=== PATIENT | female | born 1945 | race Caucasian/White ===

== ENCOUNTER 2019-10-14 21:23 | Emergency (ER) | payer MEDICARE, BC ==
--- NOTE | 2019-10-14 21:59 | EDM.PDOC ---
ED HPI GENERAL MEDICAL PROBLEM - General Chief Complaint: General Stated Complaint: previous vision changes Time Seen by Provider: 10/14/19 21:23 Source of Information: Reports: Patient, Significant Other History Limitations: Reports: No Limitations - History of Present Illness INITIAL COMMENTS - FREE TEXT/NARRATIVE: Patient presents reporting an episode of vision change that occurred 36 hours ago. She says the lights all seemed very bright. It lasted 5-10 minutes and was followed by a headache. She feels well and normal now. About a month ago she was talking on the phone with her sister and started saying things that didn't make sense. She was aware of it but couldn't stop. Her sister agreed that she wasn't making sense. It lasted 3-4 minutes and was followed by a severe headache that went away with Tylenol. - Related Data Allergies Allergy/AdvReac Type Severity Reaction Status Date / Time Penicillins Allergy Hives Verified 10/14/19 21:56 Sulfa (Sulfonamide Allergy Hives Verified 10/14/19 21:56 Antibiotics) Home Meds: Home Meds . [Unable to Verify Home Med List] 02/04/14 [History] ED ROS GENERAL - Review of Systems Review Of Systems: See Below Constitutional: Denies: Fever, Weakness HEENT: Reports: Vision Change (normal now) Respiratory: Denies: Shortness of Breath, Cough Cardiovascular: Reports: Other (feels a flutter sometimes). Denies: Chest Pain, Lightheadedness, Syncope GI/Abdominal: Denies: Abdominal Pain, Vomiting : Denies: Dysuria, Flank Pain Musculoskeletal: Denies: Neck Pain, Shoulder Pain, Arm Pain, Back Pain, Hand Pain Skin: Denies: Cyanosis, Jaundice, Mottled, Pallor, Diaphoresis Neurological: Reports: Confusion (not now), Headache (not now). Denies: Seizure, Syncope, Difficulty Walking Psychiatric: Denies: Agitation ED EXAM, GENERAL - Physical Exam Exam: See Below Exam Limited By: No Limitations General Appearance: Alert, WD/WN, No Apparent Distress Eye Exam: Bilateral Eye: EOMI, Normal Inspection (full visual sosa bilat), PERRL Ears: Normal External Exam, Hearing Grossly Normal Nose: Normal Inspection, No Blood Throat/Mouth: Normal Inspection, Normal Lips, Normal Voice, No Airway Compromise Head: Atraumatic, Normocephalic Neck: Normal Inspection, Non-Tender, Full Range of Motion Respiratory/Chest: No Respiratory Distress, Lungs Clear, Normal Breath Sounds, No Accessory Muscle Use Cardiovascular: Regular Rate, Rhythm, No Murmur GI/Abdominal: No Distention Back Exam: Normal Inspection, Full Range of Motion. No: CVA Tenderness (L), CVA Tenderness (R) Extremities: Normal Inspection, Normal Range of Motion Neurological: Alert, Oriented, CN II-XII Intact, Normal Cognition, Normal Gait, No Motor/Sensory Deficits, Other (normal Romberg) Psychiatric: Normal Affect, Normal Mood Skin Exam: Warm, Dry, Intact, Normal Color, No Rash Course - Orders/Labs/Meds Orders: Active Orders 24 hr Category Date Time Status EKG Documentation Completion [RC] ASDIRECTED Care 10/14/19 21:58 Active EKG Documentation Completion [RC] ASDIRECTED Care 10/14/19 22:00 Ordered Head wo Cont [CT] Stat Exams 10/14/19 21:53 Ordered EKG 12 Lead [EK] Stat Ther 10/14/19 21:59 Ordered Labs: Laboratory Tests 10/14/19 10/14/19 Range/Units 22:40 22:40 WBC 4.46 L (5.00-10.00) 10^3/uL RBC 4.18 (3.80-5.50) 10^6/uL Hgb 13.3 (12.0-16.0) g/dL Hct 40.1 (37.0-47.0) % MCV 95.9 H (82.0-92.0) fL MCH 31.8 H (27.0-31.0) pg MCHC 33.2 (32.0-36.0) g/dL RDW 11.9 (11.5-14.5) % Plt Count 205 (150-400) 10^3/uL MPV 8.6 (7.4-10.4) fL Immature Gran % (Auto) 0.0 (0.0-5.0) % Neut % (Auto) 42.4 L (50.0-70.0) % Lymph % (Auto) 47.3 H (20.0-40.0) % Kimball % (Auto) 7.2 (2.0-8.0) % Eos % (Auto) 2.7 (1.0-3.0) % Baso % (Auto) 0.4 (0.0-1.0) % Neut # (Auto) 1.89 L (2.50-7.00) 10^3/uL Lymph # (Auto) 2.11 (1.00-4.00) 10^3/uL Kimball # (Auto) 0.32 (0.10-0.80) 10^3/uL Eos # (Auto) 0.12 (0.10-0.30) 10^3/uL Baso # (Auto) 0.02 (0.00-0.10) 10^3/uL Immature Gran # (Auto) 0.00 (0.00-0.50) 10^3/uL Sodium 135 L (136-145) mmol/L Potassium 4.6 (3.3-5.3) mmol/L Chloride 100 (98-115) mmol/L Carbon Dioxide 30.3 (21.0-32.0) mmol/L Anion Gap 9.3 (5-15) mmol/L BUN 14 (6-25) mg/dL Creatinine 0.59 (0.51-1.17) mg/dL Est Cr Clr Drug Dosing TNP Estimated GFR (MDRD) > 60 mL/min Glucose 100 H (75 - 99) mg/dL Calcium 9.6 (8.7-10.3) mg/dL Troponin I 0.05 (0.00-0.070) ng/mL - Re-Assessments/Exams Free Text/Narrative Re-Assessment/Exam: 10/14/19 22:26 EKG shows NSR with q-waves and inverted T-waves in aVR, V1, V2 which is similar to EKG from Jan 2014, except V2 was normal then. Patient is not aware of any AK in the past. 10/14/19 23:30 CBC, BMP and troponin all normal. Discussed findings and plan with patient and her . She will followup with her PCP tomorrow or early next week. Discharged to home in stable condition. Departure - Departure Time of Disposition: 23:27 Disposition: Home, Self-Care 01 Condition: Good Clinical Impression: Episode of confusion, Visual disturbance - Discharge Information Referrals: Catina Dash MD [Primary Care Provider] - Forms: ED Department Discharge Additional Instructions: Take an aspirin a day until you see your PCP. Call your PCP tomorrow morning to schedule a visit for ER followup [facility], at least by early next week. - My Orders Last 24 Hours: My Active Orders 10/14/19 21:53 Head wo Cont [CT] Stat 10/14/19 21:58 EKG Documentation Completion [RC] ASDIRECTED 10/14/19 21:59 EKG 12 Lead [EK] Stat 10/14/19 22:00 EKG Documentation Completion [RC] ASDIRECTED - Assessment/Plan Last 24 Hours: My Active Orders 10/14/19 21:53 Head wo Cont [CT] Stat 10/14/19 21:58 EKG Documentation Completion [RC] ASDIRECTED 10/14/19 21:59 EKG 12 Lead [EK] Stat 10/14/19 22:00 EKG Documentation Completion [RC] ASDIRECTED
[2019-10-14 23:18] LABS: ANION GAP 9.3 mmol/L (5-15); CHLORIDE,CL 100 mmol/L (98-115); SODIUM,NA 135 mmol/L (136-145)
--- NOTE | 2019-10-15 08:42 | CT ---
[id number] CT/CT Head WO IV EXAM: CT Head WO IV CLINICAL DATA: NEUROLOGIC DEFICIT COMPARISON: NO PREVIOUS SIMILAR EXAM IS AVAILABLE FOR COMPARISON. FINDINGS: There is no mass or mass effect. There is no hemorrhage or hydrocephalus. There are no extra-axial fluid collections. There are no sites of abnormal attenuation. IMPRESSION: NO PLAIN CT EVIDENCE OF ACUTE INTRACRANIAL PROCESS. Stephen Rey MD 10/15/19 0841 Thank you for allowing us to participate in the care of your patient.
== END 2019-10-14 23:38 | disposition home or self-care (01) ==
LOC: KA.ED 21:23
DX: R41.0 Disorientation, unspecified (principal); H53.9 Unspecified visual disturbance; Z88.0 Allergy status to penicillin; Z88.2 Allergy status to sulfonamides; R42 Dizziness and giddiness
CPT/HCPCS: 36415; 70450; 80048; 84484; 85025; 93005; 99284; 99284-25

== ENCOUNTER 2021-06-01 22:41 | Emergency (ER) | payer MEDICARE, BC ==
[2021-06-01] MEDS ORDERED: LORazepam 0.5 MG Tab ONE (22:55)
[2021-06-01] MEDS ORDERED: Acetaminophen 500 MG Tab ONE (22:56)
[2021-06-01] MEDS ORDERED: Acetaminophen 500 MG Tab PO ONE (22:57)
[2021-06-01] MEDS ORDERED: LORazepam 0.5 MG Tab PO ONE (22:58)
== END 2021-06-02 00:13 | disposition home or self-care (01) ==
LOC: KA.ED 22:41
DX: K44.9 Diaphragmatic hernia without obstruction or gangrene (principal); K21.9 Gastro-esophageal reflux disease without esophagitis; F41.9 Anxiety disorder, unspecified; Z88.0 Allergy status to penicillin; Z88.2 Allergy status to sulfonamides
CPT/HCPCS: 99283; 99284; A9270-GY

== ENCOUNTER 2022-12-12 22:45 | Emergency (ER) | payer MEDICARE, BC ==
[2022-12-12] MEDS: Sodium Chloride 0.9% 10 ML Syringe FLUSH PRN (23:27)
[2022-12-12] MEDS: Labetalol 100 MG/20 ML MDV IVPUSH ONE (23:37)
[2022-12-12 23:45] LABS: BASOPHILS ABSOLUTE AUTO 0.02 10^3/uL (0.00-0.10); BASOPHILS PERCENT AUTO 0.6 % (0.0-1.0); EOSINOPHILS ABSOLUTE AUTO 0.15 10^3/uL (0.10-0.30); EOSINOPHILS PERCENT AUTO 4.1 % (1.0-3.0); HEMATOCRIT 37.6 % (37.0-47.0); HEMOGLOBIN 12.5 g/dL (12.0-16.0); LYMPHOCYTES ABSOLUTE AUTO 1.55 10^3/uL (1.00-4.00); LYMPHOCYTES PERCENT AUTO 42.7 % (20.0-40.0); MEAN CORPUSCULAR HEMOGLOBIN 30.4 pg (27.0-31.0); MEAN CORPUSCULAR HGB CONC 33.2 g/dL (32.0-36.0); MEAN CORPUSCULAR VOLUME 91.5 fL (82.0-92.0); MEAN PLATELET VOLUME 8.6 fL (7.4-10.4); MONOCYTES ABSOLUTE AUTO 0.33 10^3/uL (0.10-0.80); MONOCYTES PERCENT AUTO 9.1 % (2.0-8.0); NEUTROPHILS ABSOLUTE AUTO 1.58 10^3/uL (2.50-7.00); NEUTROPHILS PERCENT AUTO 43.5 % (50.0-70.0); PLATELET COUNT,PLT 195 10^3/uL (150-400); RED BLOOD CELL COUNT 4.11 10^6/uL (3.80-5.50); RED CELL DISTRIBUTION WIDTH 13.3 % (11.5-14.5); WHITE BLOOD CELL COUNT,WBC 3.63 10^3/uL (5.00-10.00)
[2022-12-12 23:57] LABS: APPEARANCE,URINE CLEAR (CLEAR); BILIRUBIN,URINE NEGATIVE (NEGATIVE); COLOR,URINE LIGHT YELLOW (YELLOW); GLUCOSE,URINE NEGATIVE (NEGATIVE); KETONES,URINE NEGATIVE (NEGATIVE); LEUKOCYTE ESTERASE,URINE NEGATIVE (NEGATIVE); NITRITE,URINE NEGATIVE (NEGATIVE); OCCULT BLOOD,URINE NEGATIVE (NEGATIVE); PH,URINE 8.5 (5.0-9.0); PROTEIN,URINE NEGATIVE (NEGATIVE); UROBILINOGEN,URINE 0.2 E.U./dL (0.2-1.0)
[2022-12-13 00:01] LABS: ANION GAP 8.4 mmol/L (5-15); BLOOD UREA NITROGEN,BUN 11 mg/dL (7-18); CARBON DIOXIDE,CO2 30.3 mmol/L (21.0-32.0); CHLORIDE,CL 95 mmol/L (98-107); CREATININE 0.48 mg/dL (0.51-1.17); GLUCOSE RANDOM 92 mg/dL (70-140); POTASSIUM,K 3.7 mmol/L (3.5-5.1); SODIUM,NA 130 mmol/L (136-145)
[2022-12-13 00:02] LABS: ESTIMATED GFR 97 mL/min (>=60)
[2022-12-13 00:06] LABS: BACTERIA,URINE OCCASIONAL /HPF (NONE TO FEW); EPITHELIAL CELLS,URINE RARE /LPF; RBC,URINE 0-5 /HPF (0-5); WBC,URINE 0-5 /HPF (0-5)
== END 2022-12-13 00:59 | disposition home or self-care (01) ==
LOC: SUPCPDRO 22:45 → KA.ED 22:45
DX: I16.0 Hypertensive urgency (principal); Z88.0 Allergy status to penicillin; Z88.2 Allergy status to sulfonamides
CPT/HCPCS: 36415; 80048; 81001; 84484; 85025; 93010; 96374; 99284; 99284-25; J3490